=== PATIENT | male | born 1990 | race Two or more races ===

== ENCOUNTER 2017-10-20 20:49 | Emergency (ER) | payer OTHER ==
--- NOTE | 2017-10-20 22:00 | EDM.PDOC ---
ED HPI GENERAL MEDICAL PROBLEM - General Chief Complaint: Skin Complaint Stated Complaint: INFECTION ON BOTH FEET Time Seen by Provider: 10/20/17 21:59 Source of Information: Reports: Patient History Limitations: Reports: No Limitations - History of Present Illness INITIAL COMMENTS - FREE TEXT/NARRATIVE: Hansel is a 27yo male presents to ED ambulatory with wounds to bilateral lateral ankles x 9 or 10 days. States he got a new pair of work boots that rubbed blisters to bilateral lateral ankles. The blisters popped and are now open wounds. He went on days off for 7 days, treated wounds with hydrogen peroxide, antibiotic ointment and bandages daily. He states wound to right ankle is healing but left is not, still "pretty open". He is concerned for infection. Denies f/c/s, n/v/d. He is not diabetic, no hx of wounds or healing issues. 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 Onset: Gradual Duration: Week(s): Location: Reports: Lower Extremity, Left, Lower Extremity, Right Improves with: Reports: Other Worsens with: Reports: Other (work boots rubbing) Context: Reports: Other (work boots rubbing) Bilateral Lower Ankle Pain Score (Numeric/FACES): 3 - Related Data Allergies Allergy/AdvReac Type Severity Reaction Status Date / Time No Known Allergies Allergy Verified 10/20/17 21:02 Home Meds: Home Meds . [No Known Home Meds] 10/20/17 [History] Past Medical History - Past Health History Medical/Surgical History: Denies Medical/Surgical History Social & Family History - Tobacco Use Smoking Status *Q: Light Tobacco Smoker Years of Tobacco use: 1 Packs/Tins Daily: 0.1 - Recreational Drug Use Recreational Drug Use: No ED ROS GENERAL - Review of Systems Review Of Systems: ROS reveals no pertinent complaints other than HPI. ED EXAM, SKIN/RASH Exam: See Below Exam Limited By: No Limitations General Appearance: Alert, WD/WN, No Apparent Distress Eye Exam: Bilateral Eye: EOMI, PERRL Ears: Normal External Exam, Hearing Grossly Normal Nose: Normal Inspection Throat/Mouth: Normal Inspection, Normal Voice, No Airway Compromise Head: Atraumatic, Normocephalic Neck: Normal Inspection Respiratory/Chest: No Respiratory Distress Cardiovascular: No Edema Peripheral Pulses: 2+: Posterior Tibial (L), Posterior Tibial (R), Dorsalis Pedis (L), Dorsalis Pedis (R) (Male) Exam: Deferred Rectal (Males) Exam: Deferred Extremities: No Pedal Edema, Normal Capillary Refill Neurological: Alert, Oriented, CN II-XII Intact, Normal Cognition Psychiatric: Normal Affect, Normal Mood Skin: Warm, Dry, Wound/Incision (bilateral lateral ankles just above malleolus- right leg is with 2.5cm wound to subcutaneous tissue, scabbed and healing, no drainage, wound edges with mild erythema. Left leg wound is 3cm in length gaping , dry scabbed tissue is present but wound base is moist. No obvious drainage noted. Wound edges are with erythema and mild swelling) Course - Vital Signs Last Recorded V/S: Last Vital Signs Temp 97.9 F 10/20/17 21:02 Pulse 95 10/20/17 21:02 Resp 18 10/20/17 21:02 BP 157/56 H 10/20/17 21:02 Pulse Ox 98 10/20/17 21:02 - Orders/Labs/Meds Meds: Medications Discontinued Medications Generic Name Dose Route Start Last Admin Trade Name Freq PRN Reason Stop Dose Admin Trimethoprim/Sulfamethoxazole 1 tab 10/20/17 22:14 Septra Ds PO 10/20/17 22:15 ONETIME ONE Trimethoprim/Sulfamethoxazole 1 tab 10/20/17 22:14 Septra Ds PO 10/20/17 22:15 ONETIME ONE - Re-Assessments/Exams Free Text/Narrative Re-Assessment/Exam: 10/20/17 22:25 Review with patient to avoid hydrogen peroxide at this time, wash with warm soap and water twice daily, dress with antibiotic ointment and bandage. Use harshal wraps under work boots to prevent rubbing. PO antibiotic will be given in ED with [facility] rx for Bactrim DS PO BID x 5 days. Departure - Departure Time of Disposition: 22:15 Disposition: Home, Self-Care 01 Condition: Good Clinical Impression: Wound cellulitis - Discharge Information *PRESCRIPTION DRUG MONITORING PROGRAM REVIEWED*: Not Applicable *COPY OF PRESCRIPTION DRUG MONITORING REPORT IN PATIENT SONY: Not Applicable Instructions: Cellulitis, Adult, [id number] Referrals: PCP,Not In Area [Primary Care Provider] - Forms: ED Department Discharge Additional Instructions: Harshal Wrap to both ankles/wounds daily prior to putting work boots on. Wash wounds with soap and water 1-2 times daily, avoid hydrogen peroxide at this time for wound cleansing. Antibiotic ointment and dressing daily Antibiotic by mouth twice daily- bactrim DS, monitor for rash with this antibiotic Return to ER or clinic if not improving or worsening, development of fever or other infection symptoms. Elevate legs when sitting/not working
[2017-10-20] MEDS ORDERED: Sulfamethoxazole/Trimethoprim 800-160 MG Tab PO ONE ×2 (22:14)
== END 2017-10-20 22:25 | disposition home or self-care (01) ==
LOC: JD.ED 20:49
DX: L03.116 Cellulitis of left lower limb (principal); L03.115 Cellulitis of right lower limb; F17.210 Nicotine dependence, cigarettes, uncomplicated
CPT/HCPCS: 99283; A9270